=== PATIENT | male | born 1990 | race Caucasian/White ===

== ENCOUNTER 2020-08-04 17:39 | Emergency (ER) | payer MEDICAID ==
[~2020-08-04] VITALS: Ht 172.7 cm; Wt 78.0 kg
--- NOTE | 2020-08-04 18:23 | NUR ---
BREAK RN: DR GORDON AT BEDSIDE. PT ASSESSMENT REVIEWED, POC DISCUSSED. ORDERS REC'D. PT VSS, CALL LIGHT W/I REACH
[2020-08-04 18:25] VITALS: BP 120/86
--- NOTE | 2020-08-04 19:25 | NUR ---
us complete at this time.
== END 2020-08-04 20:11 | disposition home or self-care (01) ==
LOC: ED 18:12
DX: M79.662 Pain in left lower leg (principal); M79.89 Other specified soft tissue disorders
CPT/HCPCS: 99284